=== PATIENT | male | born 1970 | race Hispanic/Latino ===

== ENCOUNTER 2024-01-07 10:54 | Inpatient (IN) | payer BC ==
[~2024-01-07] VITALS: Ht 180.3 cm; Wt 147.1 kg
--- NOTE | 2024-01-07 11:14 | ERN ---
ED Note History of Present Illness Stated Complaint: NAUSEA, VOMITING, RT SIDED FLANK PAIN RAD. TO GROI Dictation: 53-year-old male presents to the ED for evaluation of right-sided flank pain onset HEEL STIFFENER. Patient reports nausea, vomiting, cold sweats, groin pain, back pain but denies any other associated symptoms at this time. Patient states pain radiates from his lower back through his right flank down his groin. Patient also mentioned he had a similar episode 2 days ago. Allergies: Coded Allergies: No Known Drug Allergies (Unverified Allergy, Unknown, 01/07/24) Review of System Dictation Constitutional: Positive for cold sweats Negative for fever,chills, and weight loss Eyes: Negative for injury, pain,redness, and discharge ENT: Negative for injury,pain or swelling Cardiovascular: Negative for chest pain, palpitations, and edema Respiratory: Negative for shortness of breath, cough, and wheezing, Abdomen/GI: Positive for flank pain, nausea, vomiting Negative for abdominal, diarrhea, and constipation Back: Positive for back pain Negative for injury : Negative for injury, bleeding and discharge MS/Extremity: Negative for injury and deformity Skin: Negative for rash, and discoloration Neuro: Negative for headache, weakness, numbness, tingling, and seizure Psych: Negative for suicide ideation, homicidal ideation, and hallucinations Initial Vital Sign VS Vital Signs Date Time Temp Pulse Resp B/P (MAP) Pulse Ox O2 Delivery O2 Flow Rate FiO2 01/07/24 11:10 97.5 79 20 151/92 100 Room Air 0 Physical Exam Dictation General: awake, alert, NAD Head/Face: Normocephalic, atraumatic Eyes: PERRL, EOMI, vision at baseline ENT: oral cavity clear, TMs clear, no signs of infection Neck: Trachea midline, supple, no nuchal rigidity Cardiovascular: RRR, normal S1/S2, No MRGs, no JVD Respiratory: CTAB, no respiratory distress, No rales or wheezes Abdomen: Soft, right flank tenderness, non-distended, normal bowel sounds, no guarding or rebound. Skin: Warm, dry, normal turgor, no rash MS/Extremity: Pulses equal, no cyanosis, neurovascular intact, FROM Neuro: COAx4, GCS 15, strength 5/5, CN 2-12 intact, normal cerebellar exam, normal gait, Psych: Normal behavior, mood, and affect normal Results (Laboratory/Radiology) Laboratory/Radiology Laboratory Tests Test 01/07/24 11:24 White Blood Count 7.2 K/uL (4.8-10.8) Red Blood Count 5.51 MIL/uL (4.50-6.20) Hemoglobin 16.5 g/dL (14.0-18.0) Hematocrit 49.5 % (42-54) Mean Corpuscular Volume 89.8 fL (79-99) Mean Corpuscular Hemoglobin 29.9 pg (27.0-33.0) Mean Corpuscular Hemoglobin Concent 33.3 g/dL (32.0-36.0) Red Cell Distribution Width 13.2 % (11.0-15.5) Platelet Count 207 K/uL (130-400) Mean Platelet Volume 10.0 fL (7.5-10.5) Immature Granulocyte % (Auto) 0.3 % (0-1) Neutrophils (%) (Auto) 86.5 % (40.0-77.0) H Lymphocytes (%) (Auto) 7.8 % (21.0-51.0) L Monocytes (%) (Auto) 5.2 % (3.0-13.0) Eosinophils (%) (Auto) 0.1 % (0.0-8.0) Basophils (%) (Auto) 0.1 % (0.0-5.0) Neutrophils # (Auto) 6.2 K/uL (1.8-7.7) Lymphocytes # (Auto) 0.6 K/uL (1.0-4.8) L Monocytes # (Auto) 0.4 K/uL (0.1-1.0) Eosinophils # (Auto) 0.01 K/uL (0.00-0.70) Basophils # (Auto) 0.01 K/uL (0.00-0.20) Absolute Immature Granulocyte (auto 0.02 K/uL (0-1) Nucleated Red Blood Cells 0.0 % (0.0-0.19) White Cell Morphology Comment See comments Sodium Level 144 mmol/L (136-145) Potassium Level 4.2 mmol/L (3.5-5.1) Chloride Level 106 mmol/L (101-111) Carbon Dioxide Level 30 mmol/L (21-32) Blood Urea Nitrogen 12 mg/dL (7-18) Creatinine 1.1 mg/dL (0.5-1.3) Glomerular Filtration Rate Calc 81 mL/min (>90) Random Glucose 111 mg/dL (70-105) H Lactic Acid Level 2.3 mmol/L (0.8-2.5) Total Calcium 9.0 mg/dL (8.5-10.1) Total Creatine Kinase 105 U/L (21-232) Troponin I High Sensitivity < 4 ng/L (4-75) L Labs Reviewed?: Yes EKG Comment: EKG 01/07/2024 time 11:43 a.m. ventricular rate 81, sinus rhythm, left anterior fascicular block, DE 127, QRS D 95, QT 347. No STEMI CT Scan Comment: REASON: flank pain ORDERING PHYSICIAN: SHYANNE EMERY MD PROCEDURE: ABD PEL WO - CT ABDOMEN/PELVIS W/O CONTRAST CT ABDOMEN/PELVIS W/O CONTRAST REASON: flank pain COMPARISON: 01/07/2024 FINDINGS: Lung bases are clear. There are no focal liver lesions. Liver does not appear enlarged.. Spleen and pancreas appear unremarkable. The gallbladder appears normal as well. There is is a 7 mm stone in the proximal right ureter just past the ureteropelvic junction. There is only mild pelvicalyceal fullness. Kidneys appear otherwise unremarkable as do the remaining portions of both ureters. Urinary bladder appears normal. There is mild sigmoid diverticulosis without evidence of diverticulitis. Bowel loops appear otherwise unremarkable. This includes normal appearance of the appendix There is no evidence of free fluid or intraperitoneal air. There are no focal fluid collections. Aorta and retroperitoneum appear normal as do pelvic soft tissue structures. The anterior abdominal wall is intact. Osseous structures appear unremarkable. IMPRESSION: 1. 7 mm stone in the proximal right ureter just past the ureteropelvic junction, there is only mild pelvicalyceal fullness present at this time. 2. Mild sigmoid diverticulosis without evidence of diverticulitis 3. Otherwise unremarkable exam including a normal-appearing appendix. CT was performed with one or more following dose reduction techniques: automated exposure control, adjustment of the mA and kv according to patient's size, or use of a iterative reconstruction technique. DICTATED BY: VELMA YANCEY MD DATE: 01/07/24 1459 ED Course ED Course Orders Procedure Category Date Status Time Cbc With Differential LAB 01/07/24 Complete 11:07 Blood Cult BEAU 01/07/24 In Process 11:07 Urinalysis Profile LAB 01/07/24 Logged 11:07 Culture Urine BEAU 01/07/24 Logged 11:07 Creatine Kinase, Total LAB 01/07/24 Complete 11:07 Troponin I High LAB 01/07/24 Complete Sensitivity 11:07 Lactic Acid LAB 01/07/24 Complete 11:07 Basic Metabolic Panel LAB 01/07/24 Complete 11:07 Covid Rna Naat LAB 01/07/24 Logged 11:07 Influenza Type A & B, LAB 01/07/24 Logged Rapid 11:07 12 Lead Ekg Tracing- EKG 01/07/24 Complete Technical 11:07 Ct Abdomen/Pelvis W/O CT 01/07/24 Resulted Contrast 13:57 Lactic Acid (Removed) LAB 01/07/24 Logged 14:33 Vital Signs Date Time Temp Pulse Resp B/P (MAP) Pulse Ox O2 Delivery O2 Flow Rate FiO2 01/07/24 11:10 97.5 79 20 151/92 100 Room Air 0 Medical Decision Making MDM MDM: Differential diagnosis: Renal stone, ureteral stone, flank pain 1631- [facility], consult accepts patient for admission Previous outside records reviewed: Old ER visits. Need for hospitalization: Patient does meet criteria for hospitalization. Need for emergency major/minor surgery: No Patient's prior external medical records from other ER visits were reviewed by me as indicated. Prior testing and results from previous visits were reviewed. Prior tests were taken into account with medical decision making and resource utilization, independent historian/historians were used to obtain complete medical history. I independently interpreted the test that were performed, results were reviewed by me and considered findings on radiology if ordered. Medical management and examination interpretation discussions were had by me with other qualified healthcare professionals as indicated for the patient's care. DX & DISP Disposition: Inpatient Decision to Admit Date: Jan 07, 2024 Decision to Admit Time: 15:32 Departure Impression: Primary Impression: Ureteral stone Additional Impression: Intractable pain Condition: Stable Referrals: SIXTO SALAZAR MD (PCP) I have reviewed, & agreed with my scribe's, documentation. (Entered by Ravindra Rogers, acting as a scribe for Dr. Emery) I personally scribed for SHYANNE EMERY MD (ISHAN) on 01/07/24 at 11:14. Electronically submitted by Ravindra Rogers ([place]). I personally scribed for SHYANNE EMERY MD (ISHAN) on 01/07/24 at 12:11. Electronically submitted by Ravindra Rogers ([place]). I personally scribed for SHYANNE EMERY MD (ISHAN) on 01/07/24 at 15:33. Electronically submitted by Ravindra Rogers ([place]). SHYANNE EMERY MD Jan 07, 2024 11:14
[2024-01-07 11:32] LABS: BASOPHILS # (AUTO) 0.01 K/uL (0.00-0.20); BASOPHILS % (AUTO) 0.1 % (0.0-5.0); EOSINOPHILS # (AUTO) 0.01 K/uL (0.00-0.70); EOSINOPHILS % (AUTO) 0.1 % (0.0-8.0); HEMATOCRIT 49.5 % (42-54); IMMATURE GRANULOCYTE ABSOLUTE 0.02 K/uL (0-1); LYMPHOCYTES # (AUTO) 0.6 K/uL (1.0-4.8); LYMPHOCYTES % (AUTO) 7.8 % (21.0-51.0); MEAN CORPUSCULAR HEMOGLOBIN 29.9 pg (27.0-33.0); MEAN CORPUSCULAR HGB CONC 33.3 g/dL (32.0-36.0); MEAN CORPUSCULAR VOLUME 89.8 fL (79-99); MONOCYTES # (AUTO) 0.4 K/uL (0.1-1.0); MONOCYTES % (AUTO) 5.2 % (3.0-13.0); NEUTROPHILS # (AUTO) 6.2 K/uL (1.8-7.7); NEUTROPHILS % (AUTO) 86.5 % (40.0-77.0); PLATELET COUNT (AUTO) 207 K/uL (130-400); RED BLOOD CELL COUNT(AUTO) 5.51 MIL/uL (4.50-6.20); RED CELL DISTRIBUTION WIDTH 13.2 % (11.0-15.5); WHITE BLOOD COUNT (AUTO) 7.2 K/uL (4.8-10.8)
[2024-01-07 11:41] LABS: CREATININE 1.1 mg/dL (0.5-1.3); POTASSIUM 4.2 mmol/L (3.5-5.1)
--- NOTE | 2024-01-07 12:39 | EKG ---
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
--- NOTE | 2024-01-07 15:04 | HMCIMG ---
CT ABDOMEN/PELVIS W/O CONTRAST REASON: flank pain COMPARISON: 01/07/2024 FINDINGS: Lung bases are clear. There are no focal liver lesions. Liver does not appear enlarged.. Spleen and pancreas appear unremarkable. The gallbladder appears normal as well. There is is a 7 mm stone in the proximal right ureter just past the ureteropelvic junction. There is only mild pelvicalyceal fullness. Kidneys appear otherwise unremarkable as do the remaining portions of both ureters. Urinary bladder appears normal. There is mild sigmoid diverticulosis without evidence of diverticulitis. Bowel loops appear otherwise unremarkable. This includes normal appearance of the appendix There is no evidence of free fluid or intraperitoneal air. There are no focal fluid collections. Aorta and retroperitoneum appear normal as do pelvic soft tissue structures. The anterior abdominal wall is intact. Osseous structures appear unremarkable. IMPRESSION: 1. 7 mm stone in the proximal right ureter just past the ureteropelvic junction, there is only mild pelvicalyceal fullness present at this time. 2. Mild sigmoid diverticulosis without evidence of diverticulitis 3. Otherwise unremarkable exam including a normal-appearing appendix. CT was performed with one or more following dose reduction techniques: automated exposure control, adjustment of the mA and kv according to patient's size, or use of a iterative reconstruction technique.
[2024-01-07] MEDS ORDERED: doCUSate SODIUM 100 MG CAP PO PRN (16:30)
[2024-01-07] MEDS ORDERED: PoTASSium chl 10% ELIXIR 20MEQ 20 MEQ/15 ML UDCUP PO PRN (16:30)
[2024-01-07] MEDS ORDERED: acetaMINOPHEN 325 MG TAB PO PRN ×2 (16:30)
[2024-01-07] MEDS ORDERED: PoTASSium chloRIDE 20MEQ ER 20 MEQ ERTAB PO PRN (16:30)
[2024-01-07] MEDS ORDERED: polyETHYLene GLYCol 3350 17 GM POWD.PACK PO PRN (16:30)
[2024-01-07] MEDS ORDERED: DiphenhydrAMINE HCL 25 MG CAPSULE PO PRN (16:30)
[2024-01-07] MEDS ORDERED: ondanSETRON 4MG INJ IV PRN (16:30)
[2024-01-07] MEDS ORDERED: NITROGLYCERIN 0.4 MG SL TAB SL PRN (16:30)
[2024-01-07] MEDS ORDERED: PoTASSium chloRIDE 20MEQ/100ML 100 ML IV PRN ×2 (16:30)
[2024-01-07] MEDS ORDERED: hydrALAZine 25MG TABLET PO PRN (16:30)
--- NOTE | 2024-01-07 18:06 | NUR ---
CRITICAL LAB LACTIC ACID 2.4 PT IN LOBBY AT THIS TIME NOTIFIED ER DR EMERY NO ORDERS AT THIS TIME
--- NOTE | 2024-01-07 19:28 | NUR ---
ASSUMED PT CARE AT THIS TIME
[2024-01-07] MEDS: ketOROlac 30MG VIAL (30MG/ML) IVP ONE (20:18)
[2024-01-07] MEDS: cefTRIAXone 1G VIAL IVPB ONE (20:18)
[2024-01-07] MEDS: 0.9%NACL 1000ML 1,000 ML IV SCH (20:18)
[2024-01-07] MEDS: 0.9%NACL 1000ML 1,000 ML IV ONE (20:18)
[2024-01-07] MEDS: tamSULOsin HCL 0.4 MG CAP.ER.24H PO ONE (20:19)
[2024-01-07] MEDS: FAMOTIDINE 20MG TAB PO SCH (20:19)
[2024-01-07] MEDS ORDERED: TEST200V21 IM (20:46)
[2024-01-07] MEDS ORDERED: ATOR20TA65 PO (20:46)
[2024-01-07] MEDS ORDERED: SEMA1PEN3 SQ (20:46)
[2024-01-07] MEDS ORDERED: AEC81 PO (20:46)
--- NOTE | 2024-01-07 21:05 | NUR ---
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
[2024-01-07 21:14] LABS: SARS-CoV-2, RNA, NAAT NEGATIVE SARS CoV-2 (NEGATIVE)
--- NOTE | 2024-01-07 21:21 | HP ---
[facility] HISTORY & PHYSICAL Date Patient Seen: Jan 07, 2024 Time of Visit: 21:15 Supervising Physician: Dr. Braxton Bryant Primary Care Physician: Dr. Vance Outpatient Specialists: [ ] Inpatient Consults: [ ] PROBLEM LIST: Acute pain, POA Right nephrolithiasis, POA Morbid Obesity, POA ERNESTO, on CPAP, POA Hyperlipidemia, POA PLAN: Admit to medical-surgical floor VS per unit protocol Urology consult Continue antibiotics May use home CPAP Bilateral SCDs SBP less than 160 P.r.n. hydralazine and labetalol Multimodal pain relief Heart healthy diet Bilateral SCDs Up ad reinaldo CBC, CMP, magnesium level daily HPI: 53-year-old male with past medical history of ERNESTO, morbid obesity, hyperlipidemia who presented to ED via private vehicle with complaint right pain while driving and found to have right nephrolithiasis. Patient was seen and examined in ED with present bedside. According to patient he started feeling sudden sharp pain to right flank area with associated nausea without vomiting. He then presented to ED for further medical evaluation. In ED stat CT of the abdomen was done and showed7 mm stone in the proximal right ureter just past the ureteropelvic junction. His initial CBC and were were unremarkable. At present patient is currently hemodynamically stable, not in acute respiratory distress, denies any headache, chest pain, abdominal pain, fever, flu-like symptoms, or difficulty urinating. Patient denies any smoking, alcohol intake, illicit drug use. Patient is vaccinated against COVID virus and patient does not take flu shot. PAST MEDICAL HX: see above PAST SURGICAL HX: noncontributory SOCIAL HISTORY: No tobacco, ETOH, or illicit drug use Coded Allergies: No Known Drug Allergies (Unverified Allergy, Unknown, 01/07/24) REVIEW OF SYSTEMS: 12 point ROS reviewed with patient. Pertinent positives mentioned above. Otherwise negative. PHYSICAL EXAM: GENERAL: alert, weak, awake oriented x 3 HEENT: EOMI, Sclera non icteric, moist mucosa NECK: Supple, no JVD, trachea midline LUNGS: Clear breath sounds bilaterally. No wheezes HEART: Regular rate and rhythm. Normal S1 and S2, without murmurs ABD: Abdomen soft, nontender. Bowel sounds present EXT: No clubbing cyanosis or edema NEURO: Alert and oriented to person, follows commands Vital Signs (last 8hr) Date Time Temp Pulse Resp B/P (MAP) Pulse Ox O2 Delivery O2 Flow Rate FiO2 01/07/24 20:20 97.9 92 18 137/77 97 Room Air* 0 21 LABS: Hematology Labs: Test 01/07/24 11:24 Range/Units White Blood Count 7.2 4.8-10.8 K/uL Red Blood Count 5.51 4.50-6.20 MIL/uL Hemoglobin 16.5 14.0-18.0 g/dL Hematocrit 49.5 42-54 % Mean Corpuscular Volume 89.8 79-99 fL Mean Corpuscular Hemoglobin 29.9 27.0-33.0 pg Mean Corpuscular Hemoglobin Concent 33.3 32.0-36.0 g/dL Red Cell Distribution Width 13.2 11.0-15.5 % Platelet Count 207 130-400 K/uL Mean Platelet Volume 10.0 7.5-10.5 fL Immature Granulocyte % (Auto) 0.3 0-1 % Neutrophils (%) (Auto) 86.5 H 40.0-77.0 % Lymphocytes (%) (Auto) 7.8 L 21.0-51.0 % Monocytes (%) (Auto) 5.2 3.0-13.0 % Eosinophils (%) (Auto) 0.1 0.0-8.0 % Basophils (%) (Auto) 0.1 0.0-5.0 % Neutrophils # (Auto) 6.2 1.8-7.7 K/uL Lymphocytes # (Auto) 0.6 L 1.0-4.8 K/uL Monocytes # (Auto) 0.4 0.1-1.0 K/uL Eosinophils # (Auto) 0.01 0.00-0.70 K/uL Basophils # (Auto) 0.01 0.00-0.20 K/uL Absolute Immature Granulocyte (auto 0.02 0-1 K/uL Nucleated Red Blood Cells 0.0 0.0-0.19 % White Cell Morphology Comment See comments Chemistry Labs: Test 01/07/24 17:53 01/07/24 11:24 Range/Units Lactic Acid Level 2.4 0.8-2.5 mmol/L Sodium Level 144 136-145 mmol/L Potassium Level 4.2 3.5-5.1 mmol/L Chloride Level 106 101-111 mmol/L Carbon Dioxide Level 30 21-32 mmol/L Blood Urea Nitrogen 12 7-18 mg/dL Creatinine 1.1 0.5-1.3 mg/dL Glomerular Filtration Rate Calc 81 >90 mL/min Random Glucose 111 H 70-105 mg/dL Total Calcium 9.0 8.5-10.1 mg/dL Total Creatine Kinase 105 21-232 U/L Troponin I High Sensitivity < 4 L 4-75 ng/L DIAGNOSTICS / RADIOLOGY RESULTS: CT ABDOMEN/PELVIS W/O CONTRAST REASON: flank pain COMPARISON: 01/07/2024 FINDINGS: Lung bases are clear. There are no focal liver lesions. Liver does not appear enlarged.. Spleen and pancreas appear unremarkable. The gallbladder appears normal as well. There is is a 7 mm stone in the proximal right ureter just past the ureteropelvic junction. There is only mild pelvicalyceal fullness. Kidneys appear otherwise unremarkable as do the remaining portions of both ureters. Urinary bladder appears normal. There is mild sigmoid diverticulosis without evidence of diverticulitis. Bowel loops appear otherwise unremarkable. This includes normal appearance of the appendix There is no evidence of free fluid or intraperitoneal air. There are no focal fluid collections. Aorta and retroperitoneum appear normal as do pelvic soft tissue structures. The anterior abdominal wall is intact. Osseous structures appear unremarkable. IMPRESSION: 1 CT ABDOMEN/PELVIS W/O CONTRAST REASON: flank pain COMPARISON: 01/07/2024 FINDINGS: Lung bases are clear. There are no focal liver lesions. Liver does not appear enlarged.. Spleen and pancreas appear unremarkable. The gallbladder appears normal as well. There is is a 7 mm stone in the proximal right ureter just past the ureteropelvic junction. There is only mild pelvicalyceal fullness. Kidneys appear otherwise unremarkable as do the remaining portions of both ureters. Urinary bladder appears normal. There is mild sigmoid diverticulosis without evidence of diverticulitis. Bowel loops appear otherwise unremarkable. This includes normal appearance of the appendix There is no evidence of free fluid or intraperitoneal air. There are no focal fluid collections. Aorta and retroperitoneum appear normal as do pelvic soft tissue structures. The anterior abdominal wall is intact. Osseous structures appear unremarkable. IMPRESSION: 1. 7 mm stone in the proximal right ureter just past the ureteropelvic junction, there is only mild pelvicalyceal fullness present at this time. 2. Mild sigmoid diverticulosis without evidence of diverticulitis 3. Otherwise unremarkable exam including a normal-appearing appendix. CT was performed with one or more following dose reduction techniques: automated exposure control, adjustment of the mA and kv according to patient's size, or use of a iterative reconstruction techniqu 2. Mild sigmoid diverticulosis without evidence of diverticulitis 3. Otherwise unremarkable exam including a normal-appearing appendix. CT was performed with one or more following dose reduction techniques: automated exposure control, adjustment of the mA and kv according to patient's size, or use of a iterative reconstruction techniqu PLAN NEURO: Minimize central acting medications as possible. Maintain fall precautions, adequate lighting during the day PULMONARY: Supplemental 02 as needed. Maintain aspiration precautions at all times CARDIOVASCULAR: Follow hemodynamics. Vital signs per facility protocol GI & NUTRITION: Continue with nutritional support. Continue stool softeners and laxatives as needed. KIDNEYS & ELECTROLYTES: Strict monitoring of intake, output and overall fluid balance. Avoid nephrotoxic medications to the extent possible. Medications to be dosed according to renal function. Monitor electrolytes and replace as needed ENDOCRINE: Maintain blood glucose between 100-180 at all times. Hypoglycemia protocol in place INFECTIOUS DISEASE: Trend temperature, WBC and procalcitonin level Follow cultures, deescalate antibiotics as soon as possible. Panculture if new onset fever ONCOLOGY/HEMATOLOGY/COAGULATION: Monitor for s/s of bleeding Monitor hemoglobin, coagulation studies as needed SKIN: Pressure ulcer prevention per facility protocol Specialty mattress ORTHO/REHAB: Continue PT/OT Prophylaxis: Continue GI and DVT prophylaxis Code Status: Full Resuscitation Disposition: TBD Other: Total patient care time exceeds 35 minutes excluding all procedures. Supervising physician: Dr. Braxton ARREOLA,CASEY Marie AGACNP Jan 07, 2024 21:21
[2024-01-07 21:22] LABS: INFLUENZA TYPE A Negative For Type A (NEGATIVE); INFLUENZA TYPE B Negative For Type B (NEGATIVE)
--- NOTE | 2024-01-07 21:23 | NUR ---
REPORT GIVEN TO NURSE DOWLING
[2024-01-07] MEDS: ENOXAPARIN SODIUM 30 MG/0.3 ML SQ SCH (21:25)
[2024-01-07 21:33] VITALS: BP 148/77; PULSE 80; RESP 18; TEMP 97.8
[2024-01-07 21:37] LABS: APPEARANCE,URINE CLEAR (CLEAR); BILIRUBIN,URINE NEGATIVE (NEGATIVE); COLOR,URINE LIGHT-YELLOW (YELLOW); GLUCOSE, URINE (UA) NEGATIVE (NEGATIVE); KETONES,URINE 5 mg/dL (NEGATIVE); LEUKOCYTE ESTERASE ,URINE NEGATIVE Leu/uL (NEGATIVE); NITRATE,URINE NEGATIVE (NEGATIVE); OCCULT BLOOD,URINE SMALL (NEGATIVE); PH,URINE 5.5 (5.0-8.0); PROTEIN,URINE NEGATIVE (NEGATIVE); UROBILINOGEN,URINE 0.2 mg/dL (0.2-1.0)
[2024-01-07 21:40] LABS: ADD UA MICROSCOPIC YES; BACTERIA,URINE RARE /HPF (None Seen); MUCUS,URINE FEW LPF (None Seen)
[2024-01-08] VITALS (8 sets, daily range): BP systolic 140–161; BP diastolic 84–95; PULSE 80–89; RESP 16–20; TEMP 97.5–98.1; O2SAT 98
[2024-01-08 05:39] LABS: BASOPHILS # (AUTO) 0.01 K/uL (0.00-0.20); BASOPHILS % (AUTO) 0.1 % (0.0-5.0); EOSINOPHILS # (AUTO) 0.14 K/uL (0.00-0.70); EOSINOPHILS % (AUTO) 1.9 % (0.0-8.0); HEMATOCRIT 44.1 % (42-54); IMMATURE GRANULOCYTE ABSOLUTE 0.02 K/uL (0-1); LYMPHOCYTES # (AUTO) 1.7 K/uL (1.0-4.8); MEAN CORPUSCULAR HEMOGLOBIN 29.8 pg (27.0-33.0); MEAN CORPUSCULAR HGB CONC 32.7 g/dL (32.0-36.0); MEAN CORPUSCULAR VOLUME 91.3 fL (79-99); MONOCYTES # (AUTO) 0.8 K/uL (0.1-1.0); MONOCYTES % (AUTO) 11.1 % (3.0-13.0); NEUTROPHILS # (AUTO) 4.7 K/uL (1.8-7.7); NEUTROPHILS % (AUTO) 63.6 % (40.0-77.0); PLATELET COUNT (AUTO) 191 K/uL (130-400); RED BLOOD CELL COUNT(AUTO) 4.83 MIL/uL (4.50-6.20); RED CELL DISTRIBUTION WIDTH 13.2 % (11.0-15.5); WHITE BLOOD COUNT (AUTO) 7.4 K/uL (4.8-10.8)
[2024-01-08 05:51] LABS: MAGNESIUM 1.8 mg/dL (1.80-2.40); POTASSIUM 4.9 mmol/L (3.5-5.1)
[2024-01-08] MEDS: CEFTRIAXONE 2GM VIAL IVPB SCH (09:02)
[2024-01-08] MEDS: tamSULOsin HCL 0.4 MG CAP.ER.24H PO SCH (09:03)
[2024-01-08] MEDS: MAGNESIUM 2GM PREMIX 50ML 50 ML IV PRN (10:27)
--- NOTE | 2024-01-08 15:47 | PN ---
[facility] PROGRESS NOTE Date Patient Seen: Jan 08, 2024 Time of Visit: 15:42 Supervising Physician: [Dr. Tomlinson] Primary Care Physician: Dr. Vance Outpatient Specialists: [ ] Inpatient Consults: [ ] PROBLEM LIST: Obstructive uropathy with R-nephrolithiasis, 7mm stone, pending urology Right nephrolithiasis, POA Morbid Obesity, POA ERNESTO, on CPAP, POA Hyperlipidemia, POA PLAN: Pending Urology consult Continue flomax Admit to medical-surgical floor Continue antibiotics May use home CPAP SBP less than 160 P.r.n. hydralazine and labetalol Multimodal pain relief Heart healthy diet Bilateral SCDs Up ad reinaldo INTERVAL HISTORY: [ But pressure is 153/85 with a heart rate of 84, afebrile on room air. No documented urine output overnight. He continues on Flomax, Rocephin and IV fluids with NS at 100 mL an hour. WBCs 7, hemoglobin 14, platelets 191. BNP is unremarkable with the creatinine of 1.0. Pending urology. He is currently comfortable without pain. Is straining urine. Patient is upset for not hearing from urology yet. He was reassured of consult and visit pending.] REVIEW OF SYSTEMS: 12 point ROS reviewed with patient. Pertinent positives mentioned above. Otherwise negative. PHYSICAL EXAM: GENERAL: alert, weak, awake oriented x 3 HEENT: EOMI, Sclera non icteric, moist mucosa NECK: Supple, no JVD, trachea midline LUNGS: Clear breath sounds bilaterally. No wheezes HEART: Regular rate and rhythm. Normal S1 and S2, without murmurs ABD: Abdomen soft, nontender. Bowel sounds present EXT: No clubbing cyanosis or edema NEURO: Alert and oriented to person, follows commands Vital Signs (last 8hr) Date Time Temp Pulse Resp B/P (MAP) Pulse Ox O2 Delivery O2 Flow Rate FiO2 01/08/24 12:00 97.9 84 20 153/85 98 Room Air 01/08/24 11:20 98 Room Air* 0 21 01/08/24 08:00 97.7 84 20 156/84 98 Room Air LABS: Hematology Labs: Test 01/08/24 05:18 01/07/24 11:24 Range/Units White Blood Count 7.4 4.8-10.8 K/uL Red Blood Count 4.83 4.50-6.20 MIL/uL Hemoglobin 14.4 14.0-18.0 g/dL Hematocrit 44.1 42-54 % Mean Corpuscular Volume 91.3 79-99 fL Mean Corpuscular Hemoglobin 29.8 27.0-33.0 pg Mean Corpuscular Hemoglobin Concent 32.7 32.0-36.0 g/dL Red Cell Distribution Width 13.2 11.0-15.5 % Platelet Count 191 130-400 K/uL Mean Platelet Volume 10.4 7.5-10.5 fL Immature Granulocyte % (Auto) 0.3 0-1 % Neutrophils (%) (Auto) 63.6 40.0-77.0 % Lymphocytes (%) (Auto) 23.0 21.0-51.0 % Monocytes (%) (Auto) 11.1 3.0-13.0 % Eosinophils (%) (Auto) 1.9 0.0-8.0 % Basophils (%) (Auto) 0.1 0.0-5.0 % Neutrophils # (Auto) 4.7 1.8-7.7 K/uL Lymphocytes # (Auto) 1.7 1.0-4.8 K/uL Monocytes # (Auto) 0.8 0.1-1.0 K/uL Eosinophils # (Auto) 0.14 0.00-0.70 K/uL Basophils # (Auto) 0.01 0.00-0.20 K/uL Absolute Immature Granulocyte (auto 0.02 0-1 K/uL Nucleated Red Blood Cells 0.0 0.0-0.19 % White Cell Morphology Comment See comments Chemistry Labs: Test 01/08/24 05:18 01/07/24 17:53 01/07/24 11:24 Range/Units Sodium Level 145 136-145 mmol/L Potassium Level 4.9 3.5-5.1 mmol/L Chloride Level 110 101-111 mmol/L Carbon Dioxide Level 28 21-32 mmol/L Blood Urea Nitrogen 11 7-18 mg/dL Creatinine 1.0 0.5-1.3 mg/dL Glomerular Filtration Rate Calc 91 >90 mL/min Random Glucose 86 70-105 mg/dL Total Calcium 8.4 L 8.5-10.1 mg/dL Magnesium Level 1.80 1.80-2.40 mg/dL Lactic Acid Level 2.4 0.8-2.5 mmol/L Total Creatine Kinase 105 21-232 U/L Troponin I High Sensitivity < 4 L 4-75 ng/L DIAGNOSTICS / RADIOLOGY RESULTS: CT ABDOMEN/PELVIS W/O CONTRAST REASON: flank pain COMPARISON: 01/07/2024 FINDINGS: Lung bases are clear. There are no focal liver lesions. Liver does not appear enlarged.. Spleen and pancreas appear unremarkable. The gallbladder appears normal as well. There is is a 7 mm stone in the proximal right ureter just past the ureteropelvic junction. There is only mild pelvicalyceal fullness. Kidneys appear otherwise unremarkable as do the remaining portions of both ureters. Urinary bladder appears normal. There is mild sigmoid diverticulosis without evidence of diverticulitis. Bowel loops appear otherwise unremarkable. This includes normal appearance of the appendix There is no evidence of free fluid or intraperitoneal air. There are no focal fluid collections. Aorta and retroperitoneum appear normal as do pelvic soft tissue structures. The anterior abdominal wall is intact. Osseous structures appear unremarkable. IMPRESSION: 1. 7 mm stone in the proximal right ureter just past the ureteropelvic junction, there is only mild pelvicalyceal fullness present at this time. 2. Mild sigmoid diverticulosis without evidence of diverticulitis 3. Otherwise unremarkable exam including a normal-appearing appendix. PLAN NEURO: Minimize central acting medications as possible. Maintain fall precautions, adequate lighting during the day PULMONARY: Supplemental 02 as needed. Maintain aspiration precautions at all times CARDIOVASCULAR: Follow hemodynamics. Vital signs per facility protocol GI & NUTRITION: Continue with nutritional support. Continue stool softeners and laxatives as needed. KIDNEYS & ELECTROLYTES: Strict monitoring of intake, output and overall fluid balance. Avoid nephrotoxic medications to the extent possible. Medications to be dosed according to renal function. Monitor electrolytes and replace as needed ENDOCRINE: Maintain blood glucose between 100-180 at all times. Hypoglycemia protocol in place INFECTIOUS DISEASE: Trend temperature, WBC and procalcitonin level Follow cultures, deescalate antibiotics as soon as possible. Panculture if new onset fever ONCOLOGY/HEMATOLOGY/COAGULATION: Monitor for s/s of bleeding Monitor hemoglobin, coagulation studies as needed SKIN: Pressure ulcer prevention per facility protocol Specialty mattress ORTHO/REHAB: Continue PT/OT Prophylaxis: Continue GI and DVT prophylaxis Code Status: Full Resuscitation Disposition: TBD Other: Total patient care time exceeds 35 minutes excluding all procedures. TELLY PHAN Jan 08, 2024 15:47
--- NOTE | 2024-01-08 18:31 | NUR ---
Discharge Planning: Pt. states he lives with his spouse Hilaria Best. Contact number is . PCP is Dr. Shubham Vance, and preferred pharmacy is [facility] in [place]. Pt. states he is independent with all ADL's. No home health, provider services, or DME. Pt. is self-employed. DCP is for home. No d/c needs at present time. Addendum: 01/08/24 at 1837 by RONDA LOPEZ RN CM Amended: Links added.
--- NOTE | 2024-01-08 21:31 | CONS ---
REQUESTING PHYSICIAN: Dr. Shyam Bryant. REASON FOR CONSULTATION: Right flank pain. HISTORY OF PRESENT ILLNESS: Dear Dr. Shyam Bryant, I had the pleasure of seeing your patient in consultation for evaluation of right flank pain and right kidney stone, he is a 53-year-old male who presented to Emergency Room last night because of severe onset renal colic, cold, sweats, and nausea. The patient was noted to have a 6 x 7 mm proximal ureteric stone on the right side with mild hydronephrosis, had a similar episode less intense 2 days prior to admission. The patient encountered sitting up in a chair in his room completely comfortable. He has had no pain during the last 12 hours, whatsoever. No seizure, no pain medication and feels absolutely well and has had no previous history of kidney stones. ALLERGIES: None. MEDICATIONS: Home medications include Ozempic, testosterone, atorvastatin. In the hospital, he is on Rocephin, p.r.n. morphine and Dilaudid as well as Tylenol and Protonix. PAST MEDICAL HISTORY: No anxiety, depression. No diabetes. The patient does have hypertension. No heart attack or stroke in the past. He does say he is morbidly obese. PAST SURGICAL HISTORY: Apparently negative. FAMILY HISTORY: Negative for kidney stones. 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 Does not smoke or drink. REVIEW OF SYSTEMS: He complains of shortness of breath, no chest pain. His appetite is good. He has no nausea, no vomiting, no constipation or diarrhea. No headaches. No vision difficulties. No nosebleed. No joint pain, joint swelling, limitation of movement, night sweats, fever, chills, or skin rash at this time. PHYSICAL EXAMINATION: GENERAL: Obese male in no distress. VITAL SIGNS: Temperature is 98, blood pressure is 150/80 with a pulse of 82. NECK: Has no adenopathy or supraclavicular masses palpable. LUNGS: Boyd are clear to auscultation and percussion. HEART: Sounds are best heard in the fifth intercostal space, midclavicular line. ABDOMEN: Obese, soft, nontender. BACK: Has no CVA tenderness. GENITALIA AND RECTAL: Deferred. LABORATORY DATA: White count is 7, hematocrit is 49, platelet count is 207. Sodium is 144, potassium is 4.2. The patient's BUN and creatinine are 12/1.1. The patient's initial blood cultures apparently showed no growth over 12 hours. INR is 1.1. Urinalysis shows slightly yellow urine, specific gravity of 1.016, pH of 5, nitrites are negative. The patient has 2-5 rbc's per high power field, 2-5 white cells per high power field. IMAGING STUDIES: The patient's imaging studies are carefully reviewed. He has a 6-mm proximal ureteric stone at the ureteropelvic junction with very mild pelvicaliceal fullness if any at all on the right hand side. ASSESSMENT: * Right renal colic. * Right proximal ureteric stone. * Morbid obesity. * Hypertension. RECOMMENDATIONS: * Recommendation is for him to have improved control of his hypertension by his hospitalist team. * The patient will have a functional study with IVP with tomograms done tomorrow. * Liquid diet in view of his Ozempic usage and whether or not he might potentially require anesthesia during this admission. * If the patient's stone is visible on KUB and he has only partial obstruction on IVP, he may be a candidate for extracorporal shock wave lithotripsy during this admission. Otherwise, if he has high-grade obstruction, we will need to consider placement of nephrostomy tube and/or ureteric stent during this admission instead. * Finally, the patient's concerns and questions answered. Thank you for the opportunity providing consultation with urological patient. The PSA is ordered and for realistic expectations, I also explained to the patient and his at the bedside today. Sincerely, TID: [id number] RECEIPT: [id number]
[2024-01-08] MEDS: atorVAStatin 20 MG TABLET PO SCH (21:46)
[2024-01-08] MEDS: MAGNESIUM CITRATE 296 ML SOLUTION PO ONE (21:47)
[2024-01-09 03:31] VITALS: BP 153/85; PULSE 82; RESP 20; TEMP 98.1
[2024-01-09 08:00] VITALS: BP 152/90; PULSE 89; RESP 20; TEMP 97.7; O2SAT 99
--- NOTE | 2024-01-09 08:00 | NUR ---
PATIENT ALERT, ORIENTED IN PERSON, TIME AND PLACE. NO SIGNS OF RESPIRATORY DISTRESS. BOWEL SOUNDS PRESENT IN ALL FOUR ABDOMINAL QUADRANTS. DORSALIS PEDIS PULSE PRESENT AND STRONG IN ALL FOUR ABDOMINAL QUADRANTS. DISCUSSED PLAN OF CARE, PAIN MANAGEMENT AND CHANGES IN MEDICATION. PATIENT VERBALIZED UNDERSTANDING.
[2024-01-09] MEDS ORDERED: IOHEXOL 350 MG/ML 100ML INFUS..BTL IV ONE (08:38)
[2024-01-09] MEDS: ASPIRIN 81 MG EC TAB PO SCH (09:00)
--- NOTE | 2024-01-09 11:41 | HMCIMG ---
IVP W/WO TOMOGRAMS REASON: kidney stone COMPARISON: None TECHNIQUE: Routine IVP was performed including nephrotomograms. Contrast volume was 100 cc Omnipaque 350. FINDINGS: Pattern Technician shows a 7 mm stone in the region of the proximal right ureter. There is prompt excretion of contrast on the left following contrast injection. Left kidney and ureter appear normal as does the urinary bladder. There is mildly delayed nephrogram on the right. Proximal right ureteral stone is confirmed, just past the ureteropelvic junction, there is a mild to moderate component of obstruction. Nephrotomograms show no evidence of renal mass. Right ureter was eventually well visualized. There is only mild to right hydronephrosis. This persists on the post void image. IMPRESSION: 1. 7 mm stone in the proximal right ureter near the ureteropelvic junction with a mild component of obstruction.
[2024-01-09 12:00] VITALS: BP 137/86; PULSE 85; RESP 20; TEMP 98.6
--- NOTE | 2024-01-09 13:54 | PN ---
[facility] PROGRESS NOTE Date Patient Seen: Jan 09, 2024 Time of Visit: 13:50 Supervising Physician: [Dr. Tomlinson] Primary Care Physician: Dr. Vance Outpatient Specialists: [ ] Inpatient Consults: [ ] PROBLEM LIST: Obstructive uropathy with R-nephrolithiasis, 7mm stone, pending urology rec Right nephrolithiasis, POA Morbid Obesity, POA ERNESTO, on CPAP, POA Hyperlipidemia, POA PLAN: Pending urology recommendation Start amlodipine Continue flomax Continue antibiotics for expected procedure then may DC May use home CPAP SBP less than 160 P.r.n. hydralazine and labetalol Multimodal pain relief Heart healthy diet Bilateral SCDs Up ad reinaldo INTERVAL HISTORY: [ But pressure is 153/85 with a heart rate of 84, afebrile on room air. No documented urine output overnight. He continues on Flomax, Rocephin and IV fluids with NS at 100 mL an hour. WBCs 7, hemoglobin 14, platelets 191. BNP is unremarkable with the creatinine of 1.0. Pending urology. He is currently comfortable without pain. Is straining urine. Patient is upset for not hearing from urology yet. He was reassured of consult and visit pending.] 01/08 patient is evaluated at bedside. He is currently without any abdominal pain, admits mild cramping to his right flank area but is manageable. He was evaluated by Dr. Haddad who is recommending imaging, pending further recommendation. Blood pressure is slightly elevated, patient denies any history of hypertension and does have frequent follow up with his PCP with routine blood pressure monitoring. Not on any antihypertensives at home. It is likely d/t volume of fluids in the setting of obstructive uropathy with flank pain. Will manage while he is inpatient. REVIEW OF SYSTEMS: 12 point ROS reviewed with patient. Pertinent positives mentioned above. Otherwise negative. PHYSICAL EXAM: GENERAL: alert, weak, awake oriented x 3 HEENT: EOMI, Sclera non icteric, moist mucosa NECK: Supple, no JVD, trachea midline LUNGS: Clear breath sounds bilaterally. No wheezes HEART: Regular rate and rhythm. Normal S1 and S2, without murmurs ABD: Abdomen soft, nontender. Bowel sounds present EXT: No clubbing cyanosis or edema NEURO: Alert and oriented to person, follows commands Vital Signs (last 8hr) Date Time Temp Pulse Resp B/P (MAP) Pulse Ox O2 Delivery O2 Flow Rate FiO2 01/09/24 12:00 98.6 85 20 137/86 96 Room Air 21 01/09/24 08:00 97.7 89 20 152/90 97 Room Air 21 LABS: Hematology Labs: Test 01/08/24 05:18 Range/Units White Blood Count 7.4 4.8-10.8 K/uL Red Blood Count 4.83 4.50-6.20 MIL/uL Hemoglobin 14.4 14.0-18.0 g/dL Hematocrit 44.1 42-54 % Mean Corpuscular Volume 91.3 79-99 fL Mean Corpuscular Hemoglobin 29.8 27.0-33.0 pg Mean Corpuscular Hemoglobin Concent 32.7 32.0-36.0 g/dL Red Cell Distribution Width 13.2 11.0-15.5 % Platelet Count 191 130-400 K/uL Mean Platelet Volume 10.4 7.5-10.5 fL Immature Granulocyte % (Auto) 0.3 0-1 % Neutrophils (%) (Auto) 63.6 40.0-77.0 % Lymphocytes (%) (Auto) 23.0 21.0-51.0 % Monocytes (%) (Auto) 11.1 3.0-13.0 % Eosinophils (%) (Auto) 1.9 0.0-8.0 % Basophils (%) (Auto) 0.1 0.0-5.0 % Neutrophils # (Auto) 4.7 1.8-7.7 K/uL Lymphocytes # (Auto) 1.7 1.0-4.8 K/uL Monocytes # (Auto) 0.8 0.1-1.0 K/uL Eosinophils # (Auto) 0.14 0.00-0.70 K/uL Basophils # (Auto) 0.01 0.00-0.20 K/uL Absolute Immature Granulocyte (auto 0.02 0-1 K/uL Nucleated Red Blood Cells 0.0 0.0-0.19 % Chemistry Labs: Test 01/08/24 05:18 01/07/24 17:53 Range/Units Sodium Level 145 136-145 mmol/L Potassium Level 4.9 3.5-5.1 mmol/L Chloride Level 110 101-111 mmol/L Carbon Dioxide Level 28 21-32 mmol/L Blood Urea Nitrogen 11 7-18 mg/dL Creatinine 1.0 0.5-1.3 mg/dL Glomerular Filtration Rate Calc 91 >90 mL/min Random Glucose 86 70-105 mg/dL Total Calcium 8.4 L 8.5-10.1 mg/dL Magnesium Level 1.80 1.80-2.40 mg/dL Lactic Acid Level 2.4 0.8-2.5 mmol/L DIAGNOSTICS / RADIOLOGY RESULTS: RAIL OPERATOR W/WO TOMOGRAMS REASON: kidney stone COMPARISON: None TECHNIQUE: Routine IVP was performed including nephrotomograms. Contrast volume was 100 cc Omnipaque 350. FINDINGS: Insurance Assistant shows a 7 mm stone in the region of the proximal right ureter. There is prompt excretion of contrast on the left following contrast injection. Left kidney and ureter appear normal as does the urinary bladder. There is mildly delayed nephrogram on the right. Proximal right ureteral stone is confirmed, just past the ureteropelvic junction, there is a mild to moderate component of obstruction. Nephrotomograms show no evidence of renal mass. Right ureter was eventually well visualized. There is only mild to right hydronephrosis. This persists on the post void image. IMPRESSION: 1. 7 mm stone in the proximal right ureter near the ureteropelvic junction with a mild component of obstruction. PLAN NEURO: Minimize central acting medications as possible. Maintain fall precautions, adequate lighting during the day PULMONARY: Supplemental 02 as needed. Maintain aspiration precautions at all times CARDIOVASCULAR: Follow hemodynamics. Vital signs per facility protocol GI & NUTRITION: Continue with nutritional support. Continue stool softeners and laxatives as needed. KIDNEYS & ELECTROLYTES: Strict monitoring of intake, output and overall fluid balance. Avoid nephrotoxic medications to the extent possible. Medications to be dosed according to renal function. Monitor electrolytes and replace as needed ENDOCRINE: Maintain blood glucose between 100-180 at all times. Hypoglycemia protocol in place INFECTIOUS DISEASE: Trend temperature, WBC and procalcitonin level Follow cultures, deescalate antibiotics as soon as possible. Panculture if new onset fever ONCOLOGY/HEMATOLOGY/COAGULATION: Monitor for s/s of bleeding Monitor hemoglobin, coagulation studies as needed SKIN: Pressure ulcer prevention per facility protocol Specialty mattress ORTHO/REHAB: Continue PT/OT Prophylaxis: Continue GI and DVT prophylaxis Code Status: Full Resuscitation Disposition: TBD Other: Total patient care time exceeds 35 minutes excluding all procedures. TELLY PHAN 14, 2024 13:54
[2024-01-09 16:00] VITALS: BP 149/94; PULSE 78; RESP 22; TEMP 98.5
--- NOTE | 2024-01-09 16:45 | NUR ---
OBTAINED CONSENT FOR PROCEDURE TOMORROW WITH DR. BEAVERS.
[2024-01-09 20:00] VITALS: BP 161/93; PULSE 76; RESP 18; TEMP 98.3; O2SAT 99
[2024-01-09 23:57] VITALS: BP 159/84; PULSE 82; RESP 18; TEMP 97.6
[2024-01-10] VITALS (26 sets, daily range): BP systolic 96–158; BP diastolic 46–92; PULSE 71–109; RESP 15–19; TEMP 97.3–98.7; O2SAT 96
[2024-01-10 04:53] LABS: HEMATOCRIT 45.7 % (42-54); MEAN CORPUSCULAR HEMOGLOBIN 30.5 pg (27.0-33.0); MEAN CORPUSCULAR HGB CONC 33.3 g/dL (32.0-36.0); MEAN CORPUSCULAR VOLUME 91.8 fL (79-99); RED BLOOD CELL COUNT(AUTO) 4.98 MIL/uL (4.50-6.20); RED CELL DISTRIBUTION WIDTH 13.1 % (11.0-15.5); WHITE BLOOD COUNT (AUTO) 7.4 K/uL (4.8-10.8)
[2024-01-10 05:05] LABS: CREATININE 0.8 mg/dL (0.5-1.3); POTASSIUM 4.3 mmol/L (3.5-5.1)
[2024-01-10 06:11] LABS: INR 1.01 (0.85-1.15); PROTHROMBIN TIME 10.9 SEC (9.6-11.6)
[2024-01-10] MEDS: ketOROlac 15MG/ML VIAL (15MG/ML) IV PRN (06:15)
[2024-01-10] MEDS: amLODIPine 5 MG TAB PO SCH (09:00)
[2024-01-10] MEDS: CEFTRIAXONE 2GM VIAL IVPB SCH (09:38)
--- NOTE | 2024-01-10 10:16 | PN ---
[facility] PROGRESS NOTE Date Patient Seen: Jan 10, 2024 Time of Visit: 10:14 Supervising Physician: [Dr. Tomlinson] Primary Care Physician: Dr. Vance Outpatient Specialists: [ ] Inpatient Consults: [ ] PROBLEM LIST: Obstructive uropathy with R-nephrolithiasis, 7mm stone, pending urology rec Right nephrolithiasis, POA Morbid Obesity, POA ERNESTO, on CPAP, POA Hyperlipidemia, POA PLAN: Pending lithotripsy Continue amlodipine Continue flomax Pain management Continue antibiotics for expected procedure then may DC May use home CPAP SBP less than 160 P.r.n. hydralazine and labetalol Multimodal pain relief Heart healthy diet Bilateral SCDs Up ad reinaldo INTERVAL HISTORY: [ But pressure is 153/85 with a heart rate of 84, afebrile on room air. No documented urine output overnight. He continues on Flomax, Rocephin and IV fluids with NS at 100 mL an hour. WBCs 7, hemoglobin 14, platelets 191. BNP is unremarkable with the creatinine of 1.0. Pending urology. He is currently comfortable without pain. Is straining urine. Patient is upset for not hearing from urology yet. He was reassured of consult and visit pending.] 01/08 patient is evaluated at bedside. He is currently without any abdominal pain, admits mild cramping to his right flank area but is manageable. He was evaluated by Dr. Haddad who is recommending imaging, pending further recommendation. Blood pressure is slightly elevated, patient denies any history of hypertension and does have frequent follow up with his PCP with routine blood pressure monitoring. Not on any antihypertensives at home. It is likely d/t volume of fluids in the setting of obstructive uropathy with flank pain. Will manage while he is inpatient. 01/09 Patient feels ok without abdominal pain or discomfort. Per nursing staff he is recommended for lithotripsy. Blood and urine cultures are negative. Will DC abx post procedure. Pending further recommendation from urology post op. REVIEW OF SYSTEMS: 12 point ROS reviewed with patient. Pertinent positives mentioned above. Otherwise negative. PHYSICAL EXAM: GENERAL: alert, weak, awake oriented x 3 HEENT: EOMI, Sclera non icteric, moist mucosa NECK: Supple, no JVD, trachea midline LUNGS: Clear breath sounds bilaterally. No wheezes HEART: Regular rate and rhythm. Normal S1 and S2, without murmurs ABD: Abdomen soft, nontender. Bowel sounds present EXT: No clubbing cyanosis or edema NEURO: Alert and oriented to person, follows commands Vital Signs (last 8hr) Date Time Temp Pulse Resp B/P (MAP) Pulse Ox O2 Delivery O2 Flow Rate FiO2 01/10/24 08:00 98.1 84 16 153/71 96 Room Air 01/10/24 04:00 97.9 87 16 158/87 99 Room Air LABS: Hematology Labs: Test 01/10/24 04:45 Range/Units White Blood Count 7.4 4.8-10.8 K/uL Red Blood Count 4.98 4.50-6.20 MIL/uL Hemoglobin 15.2 14.0-18.0 g/dL Hematocrit 45.7 42-54 % Mean Corpuscular Volume 91.8 79-99 fL Mean Corpuscular Hemoglobin 30.5 27.0-33.0 pg Mean Corpuscular Hemoglobin Concent 33.3 32.0-36.0 g/dL Red Cell Distribution Width 13.1 11.0-15.5 % Platelet Count 173 130-400 K/uL Mean Platelet Volume 9.8 7.5-10.5 fL Nucleated Red Blood Cells 0.0 0.0-0.19 % Chemistry Labs: Test 01/10/24 04:45 Range/Units Sodium Level 142 136-145 mmol/L Potassium Level 4.3 3.5-5.1 mmol/L Chloride Level 108 101-111 mmol/L Carbon Dioxide Level 28 21-32 mmol/L Blood Urea Nitrogen 7 7-18 mg/dL Creatinine 0.8 0.5-1.3 mg/dL Glomerular Filtration Rate Calc 106 >90 mL/min Random Glucose 88 70-105 mg/dL Total Calcium 8.4 L 8.5-10.1 mg/dL Coagulation Labs: Test 01/10/24 04:45 Range/Units Prothrombin Time 10.9 9.6-11.6 SEC Prothromb Time International Ratio 1.01 0.85-1.15 DIAGNOSTICS / RADIOLOGY RESULTS: [ ] PLAN NEURO: Minimize central acting medications as possible. Maintain fall precautions, adequate lighting during the day PULMONARY: Supplemental 02 as needed. Maintain aspiration precautions at all times CARDIOVASCULAR: Follow hemodynamics. Vital signs per facility protocol GI & NUTRITION: Continue with nutritional support. Continue stool softeners and laxatives as needed. KIDNEYS & ELECTROLYTES: Strict monitoring of intake, output and overall fluid balance. Avoid nephrotoxic medications to the extent possible. Medications to be dosed according to renal function. Monitor electrolytes and replace as needed ENDOCRINE: Maintain blood glucose between 100-180 at all times. Hypoglycemia protocol in place INFECTIOUS DISEASE: Trend temperature, WBC and procalcitonin level Follow cultures, deescalate antibiotics as soon as possible. Panculture if new onset fever ONCOLOGY/HEMATOLOGY/COAGULATION: Monitor for s/s of bleeding Monitor hemoglobin, coagulation studies as needed SKIN: Pressure ulcer prevention per facility protocol Specialty mattress ORTHO/REHAB: Continue PT/OT Prophylaxis: Continue GI and DVT prophylaxis Code Status: Full Resuscitation Disposition: TBD Other: Total patient care time exceeds 35 minutes excluding all procedures. TELLY PHAN Jan 10, 2024 10:16
[2024-01-10] MEDS ORDERED: LIDOCAINE PF 100MG/5ML (2%) SYRINGE 5ML ONE (14:56)
[2024-01-10] MEDS ORDERED: proPOFol 10 MG/ML 20ML VIAL IV ONE (14:57)
[2024-01-10] MEDS ORDERED: MIDAZOLAM HCL 1 MG/ML 2ML VIAL ONE (14:57)
[2024-01-10] MEDS ORDERED: FENTanyl CITRate PF 50 MCG/1 ML 2ML VIAL ONE (14:58)
[2024-01-10] MEDS ORDERED: rocuRONium bROMide 10MG/1ML 5ML VL ONE (15:00)
[2024-01-10] MEDS ORDERED: ondanSETRON 4MG INJ ONE (15:10)
[2024-01-10] MEDS ORDERED: dexaMETHasone SOD PHOSPHATE 10MG/ML 1ML VIAL ONE (15:10)
[2024-01-10] MEDS ORDERED: GLYCOPYRROLATE 0.2 MG/ML 5 ML VIAL ONE (15:47)
[2024-01-10] MEDS ORDERED: ketOROlac 30MG VIAL (30MG/ML) ONE (15:47)
[2024-01-10] MEDS ORDERED: NEOSTIGMINE METHYLSULFATE 1MG/ML IV ONE (15:47)
--- NOTE | 2024-01-11 00:40 | OP ---
DATE OF PROCEDURE: 01/10/2024 PREOPERATIVE DIAGNOSIS: Right proximal ureteric stone. PROCEDURE PERFORMED: Right-sided extracorporeal shockwave lithotripsy. POSTOPERATIVE DIAGNOSIS: An 8 x 6 mm right proximal ureteric stone at the level of the ureteropelvic junction. ANESTHESIA: General. COMPLICATIONS: None. DRAINS: None. HISTORY OF PRESENT ILLNESS: This is a 53-year-old male, right renal colic, nonobstructing stone on IVP visible at the ureteropelvic junction, elected to proceed with extracorporal shockwave for definite therapy. All risks, benefits, alternatives and potential complications of this procedure were reviewed with the patient. Concerns were answered. He did request to proceed and did provide full informed consent. No guarantees given. FINDINGS: An 8 x 6 mm renal pelvic stone on the right hand side. DESCRIPTION OF PROCEDURE: The patient was duly identified, informed consent was confirmed. Timeout was taken. He was then brought to the operating room and placed supine on the lithotripsy gurney. After adequate hemodynamic monitoring had been established by Anesthesiology Department, smooth induction of general anesthesia by Anesthesiology. Next, C-arm was then brought into field. Fluoroscopy identified the location of the stone. The shock head was then brought to the patient's right flank. Stone was placed at F2, 3000 shocks, one shock per second at 24 kV was then administered. Stone appeared to fragment completely and disappeared from fluoroscopic view. There were no complications. The patient tolerated well. At the end of the procedure, the patient was awakened from anesthesia and transferred from the operating recovery in good stable and hemodynamically satisfactory condition having experienced no complications. TID: [id number] RECEIPT: [id number]
[2024-01-11 03:52] VITALS: BP 130/73; PULSE 82; RESP 19; TEMP 97.9
[2024-01-11 08:00] VITALS: BP 143/83; PULSE 65; RESP 20; TEMP 98
[2024-01-11 09:19] VITALS: O2SAT 96
[2024-01-11] MEDS ORDERED: TAMS-1 PO (09:58)
--- NOTE | 2024-01-11 10:00 | DS ---
[facility] DISCHARGE SUMMARY Date Patient Seen: Jan 11, 2024 Time of Visit: 09:59 Supervising Physician: [Dr. Schaeffer] Primary Care Physician: Dr. Vance Outpatient Specialists: [ ] Inpatient Consults: [ ] PROBLEM LIST: Obstructive uropathy with R-nephrolithiasis, 7mm stone s/p right-sided extracorporeal shockwave lithotripsy Right nephrolithiasis, POA Morbid Obesity, POA ERNESTO, on CPAP, POA Hyperlipidemia, POA PLAN: Plenty of oral hydration Follow up with urology outpatient in 2 weeks keflex for 3 days per urology HOSPITAL COURSE: HPI (per admitting provider) 53-year-old male with past medical history of ERNESTO, morbid obesity, hyperlipidemia who presented to ED via private vehicle with complaint right pain while driving and found to have right nephrolithiasis. Patient was seen and examined in ED with present bedside. According to patient he started feeling sudden sharp pain to right flank area with associated nausea without vomiting. He then presented to ED for further medical evaluation. In ED stat CT of the abdomen was done and showed7 mm stone in the proximal right ureter just past the ureteropelvic junction. His initial CBC and were were unremarkable. Patient underwent right-sided extracorporeal shockwave lithotripsy on 01/09 and tolerated well. He was noted to have an 8X6 mm renal stone. Patient was discharged in stable condition to continue oral hydration and complete 3 days of keflex per urology. His UA and urine culture were negative. WBC remained within normal limits. The patient was treated for the following problems: ACTIVE PROBLEM LIST FOR THE HOSPITALIZATION: Obstructive uropathy with R-nephrolithiasis, 7mm stone s/p right-sided extracorporeal shockwave lithotripsy Right nephrolithiasis, POA Morbid Obesity, POA ERNESTO, on CPAP, POA Hyperlipidemia, POA CHRONIC PROBLEMS: continue previous management per PCP unless otherwise indicated [facility] FINDINGS/RECOMMENDATIONS: [Follow up with urology in 2 weeks post discharge] PROCEDURES: DATE OF PROCEDURE: 01/10/2024 PREOPERATIVE DIAGNOSIS: Right proximal ureteric stone. PROCEDURE PERFORMED: Right-sided extracorporeal shockwave lithotripsy. POSTOPERATIVE DIAGNOSIS: An 8 x 6 mm right proximal ureteric stone at the level of the ureteropelvic junction. DISCHARGE MEDICATIONS: Pt hemodynamically stable and afebrile at time of discharge. PCP notified of patients admission, hospital course and discharge. New Medications: Tamsulosin HCl (Flomax) 0.4 Mg Cap.er.24h 1 CAP PO DAILY for 30 Days, #30 CAP 0 Refills Continued Medications: Aspirin (Aspirin 81 Mg Ectab) 81 Mg Ectab 81 MG PO DAILY, TAB.EC Atorvastatin Calcium (Atorvastatin Calcium) 20 Mg Tablet 20 MG PO HS, TAB Semaglutide (Ozempic) 1 Mg/0.75 Ml (4 Mg/3 Ml) Pen.injctr 3.4 MG SQ QWEEK for 30 Days, #3 ML 0 Refills Testosterone Cypionate (Testosterone Cypionate) 200 Mg/Ml Vial 1 ML IM QWEEK PHYSICAL EXAM: GENERAL: alert, weak, awake oriented x 3 HEENT: EOMI, Sclera non icteric, moist mucosa NECK: Supple, no JVD, trachea midline LUNGS: Clear breath sounds bilaterally. No wheezes HEART: Regular rate and rhythm. Normal S1 and S2, without murmurs ABD: Abdomen soft, nontender. Bowel sounds present EXT: No clubbing cyanosis or edema NEURO: Alert and oriented to person, follows commands FOLLOW-UP: Follow-up with PCP in 2-3 days for reevaluation. F/U with Dr. Haddad in 2 weeks in office. Start flomax X 30 days. Complete keflex X 3 days per urology. RECOMMENDATIONS: See Discharge Instructions This case was seen and discussed with my supervising physician. More than 30 minutes spent on discharge process, including evaluation of the patient, discussion with nursing staff, medication reconciliation and follow-up appointments TELLY PHAN Jan 11, 2024 10:00
--- NOTE | 2024-01-11 10:33 | NUR ---
DISCHARGE PT PIV DC'D PT VERBALIZED UNDERSTANDING OF DISCHARGE INSTRUCTIONS PT GATHERED AND TOOK ALL BELONGINGS PT HAD NO FURTHER QUESTIONS AT TIME OF DISCHARGE.
--- NOTE | 2024-01-13 09:22 | CONS ---
ADDENDUM The patient has not yet been started on medical expulsive therapy with Flomax. This will be ordered to be started stats tonight and taken on a daily basis as well as strain all urine. TID: [id number] RECEIPT: [id number]
== END 2024-01-11 11:00 | disposition home or self-care (01) | DRG 694 ==
LOC: EDH 10:54 → OBSVTOIN 16:14 → EDHIP 16:14 → 3CH 21:11
PROVIDERS: ADMIT Internal Medicine; ATTEND Internal Medicine
PROC: 0TF6XZZ Fragmentation in Right Ureter, External Approach (ICD-10-PCS; principal; 2024-01-10 15:00)
DX: N13.2 Hydronephrosis with renal and ureteral calculous obstruction (principal); Z68.42 Body mass index [BMI] 45.0-49.9, adult; K57.30 Diverticulosis of large intestine without perforation or abscess without bleeding; E66.01 Morbid (severe) obesity due to excess calories; G47.33 Obstructive sleep apnea (adult) (pediatric); E78.5 Hyperlipidemia, unspecified; I10 Essential (primary) hypertension; N13.9 Obstructive and reflux uropathy, unspecified
CPT/HCPCS: 36415; 74176; 74400; 80048; 81001; 82550; 83605; 83735; 84153; 84484; 85025; 85027; 85610; 87040; 87086; 87635; 87804; 93005; 99285; G0378; J0696; J1100; J1650; J1885; J2003; J2250; J2405; J2704; J2710; J3010; J3475; J3490; J7030; Q9967; A4222; A4223